=== PATIENT | female | born 1970 | race African-American/Black ===

== ENCOUNTER 2018-11-21 11:20 | Emergency (ER) | payer OTHER ==
[2018-11-21] MEDS ORDERED: Lidocaine 1% (PF) 30 ML VIAL ONE (13:04)
[2018-11-21] MEDS ORDERED: Adacel (T-DAP) 0.5 ML SYRINGE ONE (13:04)
[2018-11-21] MEDS ORDERED: Bacitracin 1 PK ONE (13:39)
== END 2018-11-21 13:45 | disposition home or self-care (01) ==
LOC: ERS 11:20
DX: S61.412A Laceration without foreign body of left hand, initial encounter (principal); W25.XXXA Contact with sharp glass, initial encounter
CPT/HCPCS: 12002; 90471; 90715; J2001

== ENCOUNTER 2019-12-30 15:11 | Emergency (ER) | payer OTHER ==
--- NOTE | 2019-12-30 15:50 | RAD ---
RADIOGRAPH LEFT FOOT 3VIEWS: DATE: 12/30/2019 HISTORY: 49-year-old female with acute traumatic foot pain due to fall FINDINGS: There is no dislocation. No fracture is identified. IMPRESSION: 1. No fracture. 2. Diffuse soft tissue edema. 3. Pes planus.
--- NOTE | 2019-12-30 16:59 | RAD ---
LEFT ANKLE 3 VIEWS: HISTORY: Injury left ankle pain FINDINGS: Soft tissue swelling is present. The ankle mortise is maintained. No acute fracture or dislocation is identified.
== END 2019-12-30 17:28 | disposition home or self-care (01) ==
LOC: ERS 15:11
DX: S93.602A Unspecified sprain of left foot, initial encounter (principal); S93.402A Sprain of unspecified ligament of left ankle, initial encounter; W01.0XXA Fall on same level from slipping, tripping and stumbling without subsequent striking against object, initial encounter

== ENCOUNTER 2021-03-01 08:21 | Outpatient (CLI) | payer OTHER | END 2021-03-01 08:22 | disposition home or self-care (01) | LOC: BICRAD 08:21 | PROVIDERS: ATTEND Family Medicine | DX: M25.561 Pain in right knee (principal); M17.11 Unilateral primary osteoarthritis, right knee ==

== ENCOUNTER 2021-05-17 11:46 | Outpatient (CLI) | payer OTHER | END 2021-05-17 11:47 | disposition home or self-care (01) | LOC: BICMAMMO 11:46 | PROVIDERS: ATTEND Family Medicine | DX: Z12.31 Encounter for screening mammogram for malignant neoplasm of breast (principal); Z80.3 Family history of malignant neoplasm of breast | CPT/HCPCS: 77063; 77067 ==

== ENCOUNTER 2022-11-27 21:25 | Emergency (ER) | payer OTHER ==
[2022-11-27 22:40] LABS: #Monocytes 0.6 thou/uL (0.11-0.59); #Neutrophils 3.4 thou/uL (1.40-6.50); %Basophils 0.4 % (0.0-1.0); %Eosinophils 0.4 % (0.0-10.0); %Lymphocytes 26.1 % (21.0-51.0); %Monocytes 10.3 % (0.0-10.0); %Neutrophils 62.1 % (42.0-75.0); Mean Corpuscular HGB CONC 33.5 g/dL (32.0-36.0); Mean Corpuscular Hemoglobin 28.8 pg (27.0-31.0); Mean Corpuscular Volume 85.8 fl (78.0-98.0); Mean Platelet Volume 11.2 fL (7.4-10.4); Platelet Count 221 10x3/uL (130-400); RBC Distribution Width 13.4 % (11.5-14.5); Red Blood Cell (RBC) Count 4.52 mill/uL (4.20-5.40); White Blood Cell (WBC) Count 5.5 10x3/uL (4.8-10.8)
[2022-11-27 22:44] LABS: BHCG - Serum Negative (NEGATIVE); Pregs Control Background? CLEAR/WHITE (CLR/WHITE); Pregs Control Bar Appear? YES (CONTROL BAR)
[2022-11-27 22:58] LABS: ALT (SGPT) 73 U/L (8-55); AST (SGOT) 54 U/L (5-34); Albumin 4.1 g/dL (3.5-5.0); Alkaline Phosphatase 86 U/L (40-110); Anion Gap 16 mmol/L (10-20); BUN (Urea Nitrogen) 11 mg/dL (9.8-20.1); Bilirubin, Total 0.2 mg/dL (0.2-1.2); Calc. Creatinine Clearance 0 mL/min (70-130); Carbon Dioxide 24 mmol/L (22-29); Chloride 97 mmol/L (98-107); Estimated GFR 84; Globulin 3.7 g/dL (2.4-3.5); Glucose 243 mg/dL (70-105); Lipase 70 U/L (8-78); Potassium 3.7 mmol/L (3.5-5.1); Protein, Total 7.8 g/dL (6.0-8.3); Sodium 133 mmol/L (136-145)
[2022-11-28 00:34] LABS: Bacteria/HPF 2+ HPF (None Seen); Bilirubin Negative (Negative); Blood, Urine Negative (Negative); CAUTI Indications for Culture Pelvic or flank pain; Clarity Clear (Clear); Glucose, Urine (Dipstick) 50 mg/dL (Negative); Ketone, Urine Negative (Negative); Leukocyte Negative Leu/uL (Negative); Nitrite Negative (Negative); Protein, Urine (Dipstick) Negative (Neg-Trace); RBC/HPF 0-3 HPF (0-3); Specific Gravity, Urine 1.004 (1.002-1.036); Squamous Epithelial 0-3 HPF (0-3); Urobilinogen Normal mg/dL (Less than 2); WBC/HPF None Seen HPF (0-3); pH, Urine 5.5 (5.0-9.0)
[2022-11-28 00:36] LABS: Urine Culture Reflex No No
== END 2022-11-28 00:25 | disposition home or self-care (01) ==
LOC: ERS 21:25
DX: K57.92 Diverticulitis of intestine, part unspecified, without perforation or abscess without bleeding (principal); E11.9 Type 2 diabetes mellitus without complications; I10 Essential (primary) hypertension
CPT/HCPCS: 36415; 74176; 80053; 81001; 83690; 84703; 85025